=== PATIENT | male | born 1975 | race Caucasian/White ===

== ENCOUNTER 2017-01-11 17:28 | Emergency (ER) | payer OTHER ==
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
[2017-01-11 17:52] VITALS: BP 107/88; PULSE 78; TEMP 98; BMI 25.0
== END 2017-01-11 18:56 | disposition home or self-care (01) ==
LOC: JER 17:28
DX: S02.2XXD Fracture of nasal bones, subsequent encounter for fracture with routine healing (principal); V13.4XXD Pedal cycle driver injured in collision with car, pick-up truck or van in traffic accident, subsequent encounter
CPT/HCPCS: 99283-25; 99284-25